=== PATIENT | male | born 1970 | race Caucasian/White ===

== ENCOUNTER 2018-11-08 14:40 | Emergency (ER) | payer OTHER ==
[~2018-11-08] VITALS: Ht 175.2 cm; Wt 72.6 kg
[~2018-11-08 14:40] MED LIST: ANTIVERT25 MG PO; CLARITIN10 MG PO; NKHM; ZITHROMAX Z PA250 MG PO
== END 2018-11-08 15:33 | disposition home or self-care (01) ==
LOC: ED 14:40
DX: M25.512 Pain in left shoulder (principal); Z90.49 Acquired absence of other specified parts of digestive tract; X58.XXXA Exposure to other specified factors, initial encounter; Y93.89 Activity, other specified; Y92.89 Other specified places as the place of occurrence of the external cause; Y99.8 Other external cause status